=== PATIENT | male | born 1995 | race Caucasian/White ===

== ENCOUNTER 2019-03-06 11:10 | Emergency (ER) | payer OTHER ==
--- NOTE | 2019-03-06 13:11 | RAD ---
CHEST TWO VIEWS: HISTORY: Cough. COMPARISON: None. FINDINGS: Two views of the chest show normal sized cardiomediastinal silhouette. There is no evidence of consol idation, mass, or pleural effusion. The bones are unremarkable. IMPRESSION: No evidence of acute cardiopulmonary disease. POS: [facility]
== END 2019-03-06 12:44 | disposition home or self-care (01) ==
LOC: ERS 11:10
DX: R05 Cough (principal); R06.2 Wheezing
CPT/HCPCS: 71046